=== PATIENT | female | born 1965 | race Caucasian/White ===

== ENCOUNTER → 2017-02-13 | Outpatient (REF) ==
--- NOTE | 2017-02-13 12:45 | REP ---
Clinical: Pain. Technique: Internal rotation, external rotation, and Y view of the left shoulder. Findings: No prior examinations available for comparison. There is evidence for chronic acromioclavicular joint dislocation along with associated 6 mm calcific loose body at the presumed ligament. The subacromial space is normal. The glenohumeral joint appears normal. Impression: Chronic-appearing acromioclavicular joint dislocation. Signed by Willy Cowart MD 02/13/2017 12:36 P
== END ==
LOC: M SMT 12:21
PROVIDERS: ATTEND Internal Medicine
DX: S43.102A Unspecified dislocation of left acromioclavicular joint, initial encounter (principal); X58.XXXA Exposure to other specified factors, initial encounter; Y92.9 Unspecified place or not applicable; Y93.9 Activity, unspecified; Y99.9 Unspecified external cause status

== ENCOUNTER → 2021-03-15 | Outpatient (REF) ==
--- NOTE | 2021-03-15 09:08 | REP ---
INDICATION: PAIN COMPARISON: 02/13/2017 TECHNIQUE: Internal rotation, external rotation, and Y view. FINDINGS: Chronic acromioclavicular joint separation with 6 mm well corticated calcification again noted and unchanged. The subacromial space is normal. The glenohumeral joint appears intact and normal. IMPRESSION: Chronic AC joint separation. Normal appearance of the glenohumeral joint. <Electronically signed by Willy Cowart > 03/15/21 0932
== END ==
LOC: M PLAIMG 07:28
PROVIDERS: ATTEND Internal Medicine
DX: S43.102A Unspecified dislocation of left acromioclavicular joint, initial encounter (principal)